=== PATIENT | male | born 1995 | race Caucasian/White ===

== ENCOUNTER 2024-09-28 11:31 | Emergency (ER) | payer OTHER, MEDICAID ==
[~2024-09-28] VITALS: Ht 172.7 cm; Wt 76.0 kg
[2024-09-28 11:42] VITALS: TEMP 36.6; O2SAT 99
[2024-09-28 12:13] LABS: BASOPHILS % 0.2 % (0.0-2.0); EOSINOPHILS % 0.2 % (0.0-5.0); HEMATOCRIT. 39.3 % (42.0-52.0); HEMOGLOBIN. 13.1 g/dL (14.0-18.0); LYMPHOCYTES % 12.5 % (20.0-50.0); MEAN PLATELET VOLUME 8.2 fl (7.4-10.4); MONOCYTES % 6.7 % (2.0-8.0); NEUTROPHILS % 80.4 % (40.0-76.0); PLATELET 249 x1000/uL (130-400); RED BLOOD CELL COUNT 4.52 mill/uL (4.7-6.1); RED CELL DISTRIBUTION WIDTH 14.6 % (11.6-14.6)
[2024-09-28 12:17] LABS: CLARITY URINE CLEAR (CLEAR); COLOR URINE YELLOW (YELLOW); GLUCOSE URINE NEGATIVE (NEGATIVE); KETONES URINE NEGATIVE (NEGATIVE); LEUKOCYTE ESTERASE URINE NEGATIVE (NEGATIVE); NITRITE URINE NEGATIVE (NEGATIVE); OCCULT BLOOD URINE NEGATIVE (NEGATIVE); PH URINE 8.0 (4.5-8.0); PROTEIN URINE NEGATIVE (NEGATIVE); SPECIFIC GRAVITY URINE 1.022 (1.005-1.030); UROBILINOGEN URINE 1.0 E.U./dL (0.2-1.0)
[2024-09-28 12:25] LABS: INR 1.0
[2024-09-28 12:29] LABS: CREATININE 1.1 mg/dL (0.6-1.3); UREA NITROGEN BLOOD 15 mg/dL (9-23)
[2024-09-28 12:30] LABS: TROPONIN I HIGH SENSITIVITY 7 ng/L (3.0-53)
[2024-09-28] MEDS: MAGNESIUM/ALUMINUM HYDROXIDE/SIMETHICONE 30ML UDC PO ONE (14:35)
[2024-09-28] MEDS: PANTOPRAZOLE 40MG DR TABLET PO ONE (14:35)
[2024-09-28] MEDS: ONDANSETRON 4MG ODT PO ONE (14:36)
[2024-09-28 14:41] LABS: ETHANOL BLOOD < 10 mg/dL (<10)
[2024-09-28 14:42] LABS: ASPARTATE AMINOTRANSFERASE 21 IU/L (<34); BILIRUBIN DIRECT 0.7 mg/dL (<=3.0); BILIRUBIN TOTAL 1.9 mg/dL (0.1-1.0); PROTEIN TOTAL 7.1 g/dL (6.0-8.3)
[2024-09-28] MEDS ORDERED: MAG355OR21 MT (16:38)
[2024-09-28] MEDS ORDERED: LACT1CAP78 MT (16:38)
[2024-09-28] MEDS ORDERED: OMEP40CA20 MT (16:38)
[2024-09-28 16:51] VITALS: BP 110/80; PULSE 68; RESP 12; O2SAT 100
== END 2024-09-28 16:55 | disposition home or self-care (01) ==
LOC: ER 11:31
DX: R10.13 Epigastric pain (principal); Z79.899 Other long term (current) drug therapy; Z87.19 Personal history of other diseases of the digestive system
CPT/HCPCS: 80076; 80048; 81003; 80320; 83690; 85025; 85610; 86850; 86900; 86901; 84484; 36415; 71045; 74176; 76705; 99284; Q0162; Z7610; G0480

== ENCOUNTER 2024-10-20 12:49 | Emergency (ER) | payer MEDICAID ==
[~2024-10-20] VITALS: Ht 167.6 cm; Wt 70.0 kg
[~2024-10-20 12:49] MED LIST: LACT1CAP78 MT; MAG355OR21 MT; OMEP40CA20 MT
[2024-10-20 12:53] VITALS: O2SAT 100
[2024-10-20 16:30] VITALS: BP 112/76; PULSE 72; RESP 18; TEMP 37; O2SAT 100
== END 2024-10-20 16:31 | disposition home or self-care (01) ==
LOC: ER 12:49
DX: R51.9 Headache, unspecified (principal); Z79.899 Other long term (current) drug therapy
CPT/HCPCS: 99284